=== PATIENT | female | born 1965 | race Caucasian/White ===

== ENCOUNTER 2025-05-04 10:18 | Outpatient (CLI) | payer OTHER | END 2025-05-04 10:19 | disposition home or self-care (01) | LOC: BICRAD 10:18 | PROVIDERS: ATTEND Student in an Organized Health Care Education/Training Program | DX: Z02.71 Encounter for disability determination (principal); M13.0 Polyarthritis, unspecified; M47.816 Spondylosis without myelopathy or radiculopathy, lumbar region; M47.817 Spondylosis without myelopathy or radiculopathy, lumbosacral region | CPT/HCPCS: 72100 ==